=== PATIENT | female | born 1945 | race Caucasian/White ===

== ENCOUNTER 2018-01-18 14:58 | Inpatient (IN) ==
[2018-01-18] MEDS ORDERED: ONDANSETRON 4 MG/2 ML VIAL IV STA (16:07)
[2018-01-18] MEDS ORDERED: SODIUM CHLORIDE 0.9% 1,000 ML IV STA (16:07)
[2018-01-18 17:06] LABS: Basophils % 0.9 % (0.0-0.8); Eosinophils % 0.9 % (0.00-10.9); Hematocrit 46.2 VOL% (35.7-47.0); Hemoglobin 14.9 GM/DL (12.0-16.0); Immature Granulocytes % 0.4 %; Immature Granulocytes Absolute 0.01 #; Lymphocytes # 0.5 10*3/uL (1.4-4.0); Lymphocytes % 23.7 % (21.3-54.2); Mean Corpuscular HGB Conc 32.3 GM/DL (32-36); Mean Corpuscular Hemoglobin 30 PG (27-34); Mean Corpuscular Volume 91.5 FL (87-102); Mean Platelet Volume 13.5 FL (9.6-12.0); Monocytes # 0.2 10*3/uL (0.11-0.8); Monocytes % 10.1 % (1.7-12.7); Neutrophils # 1.5 10*3/uL (1.4-7.4); Platelet Count 107 T/CUMM (130-400); Red Blood Count 5.05 MC/CUMM (3.8-5.5); Red Cell Distribution Width 15.7 % (9.3-17.3); White Blood Count 2.3 T/CUMM (4-12)
[2018-01-18 17:39] LABS: Alanine Aminotransferase 1132 U/L (13-56); Albumin 3.5 G/DL (3.4-5.0); Alkaline Phosphatase 273 U/L (45-117); Amylase 24 U/L (25-115); Blood Urea Nitrogen 12 MG/DL (7-18); Calcium 8.9 MG/DL (8.5-10.1); Glucose 109 MG/DL (74-106); Osmolality,Calculated 273.8 MOS/KG (273-304); Potassium 4.7 MMOL/L (3.5-5.1); Sodium 137 MMOL/L (136-145); Total Protein 7.2 G/DL (6.4-8.3); Troponin I Only < 0.015 NG/ML (0.00-0.045)
[2018-01-18 17:46] LABS: Aspartate Amino Transferase 2045 U/L (0-37)
[2018-01-18 17:50] LABS: Apearance,Urine CLEAR (Clear); Bilirubin,Urine Negative (Negative); Blood, Urine Negative (Negative); Glucose,Urine (UA) Negative (Negative); Ketones,Urine Negative (Negative); Nitrite,Urine Negative (Negative); Protein,Urine Negative; RBC,Urine <1 /HPF (0-4); Urine Color Yellow (Yellow); Urine Specific Gravity 1.008 (1.001-1.035); Urine Urobilinogen < 2.0 EU/DL (0.2-1.0); WBC,Urine <1 /HPF (0-6)
[2018-01-18] MEDS ORDERED: ONDANSETRON 4 MG/2 ML VIAL IV PRN (18:12)
[2018-01-18 18:22] LABS: INR 0.9
[2018-01-18 20:04] LABS: Hepatitis A Ab IgM Quant 0.14 Index; Hepatitis A Ab IgM Result Negative (Negative); Hepatitis B Core IgM Quant 0.19 Index; Hepatitis B Core IgM Result Negative (Negative); Hepatitis B Surface Ag Quant < 0.10 Index; Hepatitis B Surface Ag Result Negative (Negative); Hepatitis C Virus Ab Quant 0.14 Index; Hepatitis C Virus Ab Result Negative (Negative)
[2018-01-18] MEDS: SODIUM CHLORIDE 0.9% 1,000 ML IV SCH (20:41)
[2018-01-18] MEDS: MAGNESIUM OXIDE 400 MG TABLET PO SCH (21:44)
[2018-01-18] MEDS: ENOXAPARIN 40 MG/0.4 ML SYRINGE SUBCUT SCH (21:45)
[2018-01-18] MEDS: ASPIRIN EC 325 MG TABLET PO SCH (21:45)
[2018-01-18] MEDS ORDERED: PANTOPRAZOLE 40 MG VIAL IV SCH (22:00)
[2018-01-19 06:03] LABS: Basophils % 0.9 % (0.0-0.8); Eosinophils # 0.1 10*3/uL (0.0-0.87); Eosinophils % 2.4 % (0.00-10.9); Hematocrit 40.3 VOL% (35.7-47.0); Hemoglobin 13.2 GM/DL (12.0-16.0); Immature Granulocytes % 0.3 %; Immature Granulocytes Absolute 0.01 #; Lymphocytes # 1.2 10*3/uL (1.4-4.0); Lymphocytes % 36.5 % (21.3-54.2); Mean Corpuscular HGB Conc 32.8 GM/DL (32-36); Mean Corpuscular Hemoglobin 30 PG (27-34); Mean Corpuscular Volume 90.6 FL (87-102); Mean Platelet Volume 13.4 FL (9.6-12.0); Monocytes # 0.3 10*3/uL (0.11-0.8); Monocytes % 9.1 % (1.7-12.7); Neutrophils # 1.7 10*3/uL (1.4-7.4); Neutrophils % 50.8 % (38.7-73.9); Platelet Count 123 T/CUMM (130-400); Red Blood Count 4.45 MC/CUMM (3.8-5.5); Red Cell Distribution Width 15.7 % (9.3-17.3); White Blood Count 3.3 T/CUMM (4-12)
[2018-01-19] MEDS: LEVOTHYROXINE 100 MCG TABLET PO SCH (06:19)
[2018-01-19] MEDS: SODIUM CHLORIDE 0.9% 1,000 ML IV SCH ×2 (06:20→20:56)
[2018-01-19 06:37] LABS: Albumin 2.8 G/DL (3.4-5.0); Calcium 7.9 MG/DL (8.5-10.1); Thyroid Stimulating Hormone 1.3 uIU/ml (0.358-3.74); Total Protein 5.6 G/DL (6.4-8.3)
[2018-01-19 15:39] LABS: % Iron Saturation 56.9 % (18-50)
[2018-01-19] MEDS: amLODIPine 10 MG TABLET PO SCH (18:46)
[2018-01-19] MEDS: PANTOPRAZOLE 40 MG TABLET PO SCH (18:46)
[2018-01-19] MEDS: MAGNESIUM OXIDE 400 MG TABLET PO SCH ×2 (18:46→20:52)
[2018-01-19] MEDS: MONTELUKAST 10 MG TABLET PO SCH (18:46)
[2018-01-19] MEDS ORDERED: IBUPROFEN 400 MG TABLET PO PRN (20:43)
[2018-01-19] MEDS: ASPIRIN EC 325 MG TABLET PO SCH (20:52)
[2018-01-19] MEDS: ENOXAPARIN 40 MG/0.4 ML SYRINGE SUBCUT SCH (20:54)
[2018-01-20 05:44] LABS: Basophils % 1.1 % (0.0-0.8); Eosinophils # 0.1 10*3/uL (0.0-0.87); Eosinophils % 3.9 % (0.00-10.9); Hematocrit 39.8 VOL% (35.7-47.0); Immature Granulocytes % 0.3 %; Immature Granulocytes Absolute 0.01 #; Lymphocytes # 1.5 10*3/uL (1.4-4.0); Lymphocytes % 40.7 % (21.3-54.2); Mean Corpuscular HGB Conc 32.7 GM/DL (32-36); Mean Corpuscular Hemoglobin 30 PG (27-34); Mean Corpuscular Volume 91.3 FL (87-102); Mean Platelet Volume 12.9 FL (9.6-12.0); Monocytes # 0.3 10*3/uL (0.11-0.8); NRBC # 0.02 10*3/uL; Neutrophils # 1.6 10*3/uL (1.4-7.4); Platelet Count 100 T/CUMM (130-400); Red Blood Count 4.36 MC/CUMM (3.8-5.5); Red Cell Distribution Width 15.6 % (9.3-17.3); White Blood Count 3.6 T/CUMM (4-12)
[2018-01-20 06:16] LABS: Albumin 2.8 G/DL (3.4-5.0); Bilirubin,Total 0.6 MG/DL (0.2-1.0); Calcium 7.5 MG/DL (8.5-10.1); Potassium 4.2 MMOL/L (3.5-5.1); Total Protein 5.5 G/DL (6.4-8.3)
[2018-01-20 06:17] LABS: Albumin 2.9 G/DL (3.4-5.0); Bilirubin,Direct 0.13 MG/DL (0.0-0.20); Bilirubin,Indirect 0.6 MG/DL (0.0-1.0); Bilirubin,Total 0.7 MG/DL (0.2-1.0); Total Protein 5.3 G/DL (6.4-8.3)
[2018-01-20] MEDS: LEVOTHYROXINE 100 MCG TABLET PO SCH (06:18)
[2018-01-20] MEDS: SODIUM CHLORIDE 0.9% 1,000 ML IV SCH (07:50)
[2018-01-20] MEDS ORDERED: ERYTHROMYCIN BASE 250 MG TABLET PO SCH (11:30)
[2018-01-20] MEDS: PANTOPRAZOLE 40 MG TABLET PO SCH (11:38)
[2018-01-20] MEDS: amLODIPine 10 MG TABLET PO SCH (11:38)
[2018-01-20] MEDS: MAGNESIUM OXIDE 400 MG TABLET PO SCH (11:38)
[2018-01-20] MEDS: MONTELUKAST 10 MG TABLET PO SCH (11:38)
[2018-01-20 14:54] VITALS: BP 135/65
== END 2018-01-20 15:39 | disposition home or self-care (01) | DRG 392 ==
LOC: N.ED 14:58 → N.EDINP 17:56 → N.4E 19:41
PROVIDERS: ADMIT Hospitalist; ATTEND Hospitalist

== ENCOUNTER 2020-05-18 14:19 | Observation (INO) ==
[2020-05-18] MEDS ORDERED: SIMETHICONE CHEW 125 MG TABLET PO PRN (17:01)
[2020-05-18] MEDS ORDERED: MAGNESIUM SULF RIDER 2 GM in PREMIX 1 EACH IV PRN (17:01)
[2020-05-18] MEDS ORDERED: MAGNESIUM SULF RIDER 4 GM in PREMIX 1 EACH IV PRN (17:01)
[2020-05-18] MEDS ORDERED: ZALEPLON 5 MG CAPSULE PO PRN (17:01)
[2020-05-18] MEDS ORDERED: ALUMINUM/MAGNES/SIMETH MAX STR 30 ML UDCUP PO PRN (17:01)
[2020-05-18] MEDS ORDERED: ONDANSETRON 4 MG/2 ML VIAL IV PRN (17:01)
[2020-05-18] MEDS ORDERED: DOCUSATE SODIUM 100 MG CAPSULE PO PRN (17:01)
[2020-05-18] MEDS ORDERED: POTASSIUM CHLORIDE 20 MEQ TABLET PO PRN (17:01)
[2020-05-18] MEDS ORDERED: diphenhydrAMINE CAP 25 MG CAPSULE PO PRN (17:01)
[2020-05-18] MEDS ORDERED: ENOXAPARIN 40 MG/0.4 ML SYRINGE SUBCUT ONE (17:08)
[2020-05-18] MEDS ORDERED: ONDANSETRON ODT 4 MG TABLET PO PRN (17:12)
[2020-05-18] MEDS ORDERED: NITROGLYCERIN SL 0.4 MG TABLET SL PRN (17:12)
[2020-05-18 17:45] LABS: Basophils % 0.8 % (0.0-0.8); Eosinophils # 0.1 10*3/uL (0.0-0.87); Eosinophils % 2.1 % (0.00-10.9); Hematocrit 40.4 VOL% (35.7-47.0); Immature Granulocytes % 0.2 %; Immature Granulocytes Absolute 0.01 #; Lymphocytes # 1.4 10*3/uL (1.4-4.0); Lymphocytes % 28.1 % (21.3-54.2); Mean Corpuscular HGB Conc 32.2 GM/DL (32-36); Mean Corpuscular Volume 94.4 FL (87-102); Mean Platelet Volume 12.2 FL (9.6-12.0); Neutrophils % 60.8 % (38.7-73.9); Platelet Count 157 T/CUMM (130-400); Red Blood Count 4.28 MC/CUMM (3.8-5.5); Red Cell Distribution Width 14.5 % (9.3-17.3); White Blood Count 5.1 T/CUMM (4-12)
[2020-05-18 18:03] LABS: Albumin 3.2 G/DL (3.4-5.0); Bilirubin,Total 0.8 MG/DL (0.2-1.0); Calcium 9.5 MG/DL (8.5-10.1); Osmolality,Calculated 281.1 MOS/KG (273-304); Total Protein 6.9 G/DL (6.4-8.3)
[2020-05-18 18:10] LABS: Hypochromasia 1+; Microcytosis 1+; Platelet Estimate Adequate
[2020-05-18] MEDS: ASPIRIN EC 325 MG TABLET PO SCH (21:30)
[2020-05-18] MEDS: SODIUM CHLORIDE 0.45% 1,000 ML IV SCH (21:30)
[2020-05-18] MEDS: clonazePAM 0.5 MG TABLET PO SCH (21:30)
[2020-05-18] MEDS ORDERED: ACETAMINOPHEN 325 MG TABLET PO PRN (23:00)
[2020-05-19 04:54] LABS: Basophils % 0.9 % (0.0-0.8); Eosinophils # 0.1 10*3/uL (0.0-0.87); Eosinophils % 2.8 % (0.00-10.9); Hematocrit 34.9 VOL% (35.7-47.0); Hemoglobin 11.3 GM/DL (12.0-16.0); Immature Granulocytes % 0.2 %; Immature Granulocytes Absolute 0.01 #; Lymphocytes # 1.6 10*3/uL (1.4-4.0); Lymphocytes % 34.6 % (21.3-54.2); Mean Corpuscular HGB Conc 32.4 GM/DL (32-36); Mean Corpuscular Volume 93.8 FL (87-102); Mean Platelet Volume 12.9 FL (9.6-12.0); Monocytes % 9.1 % (1.7-12.7); Neutrophils % 52.4 % (38.7-73.9); Platelet Count 144 T/CUMM (130-400); Red Blood Count 3.72 MC/CUMM (3.8-5.5); Red Cell Distribution Width 14.3 % (9.3-17.3); White Blood Count 4.6 T/CUMM (4-12)
[2020-05-19 05:07] LABS: Albumin 2.6 G/DL (3.4-5.0); Bilirubin,Total 1.3 MG/DL (0.2-1.0); Osmolality,Calculated 276.4 MOS/KG (273-304)
[2020-05-19 05:55] LABS: Anisocytosis 1+; Platelet Estimate Adequate
[2020-05-19 05:56] LABS: Spherocytes Few
[2020-05-19] MEDS: SODIUM CHLORIDE 0.45% 1,000 ML IV SCH (08:33)
[2020-05-19] MEDS ORDERED: amLODIPine 5 MG TABLET PO SCH (09:00)
[2020-05-19] MEDS ORDERED: LOSARTAN 25 MG TABLET PO SCH (09:00)
[2020-05-19] MEDS: PARoxetine 20 MG TABLET PO SCH (09:56)
[2020-05-19] MEDS: ISOSORBIDE MONONITRATE 60 MG TABLET PO SCH (09:56)
[2020-05-19] MEDS: LEVOTHYROXINE 100 MCG TABLET PO SCH (09:56)
[2020-05-19] MEDS: PANTOPRAZOLE 40 MG TABLET PO SCH (09:59)
[2020-05-19] MEDS: METOPROLOL SUCCINATE XL 25 MG TABLET PO SCH (09:59)
[2020-05-19] MEDS ORDERED: amLODIPine 5 MG TABLET PO STA (11:14)
[2020-05-19] MEDS ORDERED: LOSARTAN 25 MG TABLET PO STA (11:31)
[2020-05-19] MEDS ORDERED: THROMBIN TOPICAL (RECOMBINANT) 5,000 UNIT VIAL TOP ONE (14:58)
[2020-05-19] MEDS ORDERED: LOSARTAN 50 MG TABLET PO SCH (21:00)
[2020-05-19] MEDS: clonazePAM 0.5 MG TABLET PO SCH (21:20)
[2020-05-19] MEDS: LOSARTAN 50 MG TABLET PO SCH (21:21)
[2020-05-19] MEDS: ROSUVASTATIN 20 MG TABLET PO SCH (21:21)
[2020-05-19] MEDS: ASPIRIN EC 325 MG TABLET PO SCH (21:21)
[2020-05-20 05:26] LABS: Basophils % 0.8 % (0.0-0.8); Eosinophils # 0.2 10*3/uL (0.0-0.87); Eosinophils % 2.9 % (0.00-10.9); Hemoglobin 11.5 GM/DL (12.0-16.0); Immature Granulocytes % 0.4 %; Immature Granulocytes Absolute 0.02 #; Lymphocytes # 1.7 10*3/uL (1.4-4.0); Lymphocytes % 32.2 % (21.3-54.2); Mean Corpuscular HGB Conc 32.9 GM/DL (32-36); Mean Corpuscular Volume 92.3 FL (87-102); Monocytes % 9.2 % (1.7-12.7); Neutrophils % 54.5 % (38.7-73.9); Platelet Count 148 T/CUMM (130-400); Red Blood Count 3.79 MC/CUMM (3.8-5.5); Red Cell Distribution Width 14.2 % (9.3-17.3); White Blood Count 5.2 T/CUMM (4-12)
[2020-05-20 05:44] LABS: Calcium 9.2 MG/DL (8.5-10.1); Osmolality,Calculated 278.4 MOS/KG (273-304)
[2020-05-20] MEDS: LEVOTHYROXINE 100 MCG TABLET PO SCH (06:17)
[2020-05-20] MEDS ORDERED: amLODIPine 10 MG TABLET PO SCH (09:00)
[2020-05-20] MEDS: METOPROLOL SUCCINATE XL 25 MG TABLET PO SCH (09:04)
[2020-05-20] MEDS: PANTOPRAZOLE 40 MG TABLET PO SCH (09:04)
[2020-05-20] MEDS: PARoxetine 20 MG TABLET PO SCH (09:04)
[2020-05-20] MEDS: ISOSORBIDE MONONITRATE 60 MG TABLET PO SCH (09:04)
[2020-05-20] MEDS: LOSARTAN 50 MG TABLET PO SCH ×2 (09:04→21:09)
[2020-05-20] MEDS ORDERED: APIXABAN 5 MG TABLET PO SCH (14:27)
[2020-05-20] MEDS ORDERED: amLODIPine 5 MG TABLET PO SCH (21:00)
[2020-05-20] MEDS: APIXABAN 5 MG TABLET PO SCH (21:08)
[2020-05-20] MEDS: ROSUVASTATIN 20 MG TABLET PO SCH (21:09)
[2020-05-20] MEDS: ASPIRIN EC 325 MG TABLET PO SCH (21:09)
[2020-05-20] MEDS: clonazePAM 0.5 MG TABLET PO SCH (21:10)
[2020-05-21 05:47] LABS: Basophils % 0.5 % (0.0-0.8); Eosinophils # 0.2 10*3/uL (0.0-0.87); Eosinophils % 2.9 % (0.00-10.9); Hematocrit 37.2 VOL% (35.7-47.0); Immature Granulocytes % 0.2 %; Immature Granulocytes Absolute 0.01 #; Lymphocytes # 1.7 10*3/uL (1.4-4.0); Lymphocytes % 29.4 % (21.3-54.2); Mean Corpuscular HGB Conc 32.3 GM/DL (32-36); Mean Corpuscular Volume 93.9 FL (87-102); Mean Platelet Volume 12.3 FL (9.6-12.0); Monocytes % 9.6 % (1.7-12.7); Neutrophils % 57.4 % (38.7-73.9); Platelet Count 148 T/CUMM (130-400); Red Blood Count 3.96 MC/CUMM (3.8-5.5); Red Cell Distribution Width 14.1 % (9.3-17.3); White Blood Count 5.9 T/CUMM (4-12)
[2020-05-21] MEDS: LEVOTHYROXINE 100 MCG TABLET PO SCH (06:02)
[2020-05-21 07:27] LABS: Calcium 9.3 MG/DL (8.5-10.1); Osmolality,Calculated 282.3 MOS/KG (273-304)
[2020-05-21] MEDS ORDERED: ASPIRIN EC 81 MG TABLET PO SCH (09:00)
[2020-05-21] MEDS: APIXABAN 5 MG TABLET PO SCH (11:08)
[2020-05-21] MEDS: PANTOPRAZOLE 40 MG TABLET PO SCH (11:08)
[2020-05-21] MEDS: METOPROLOL SUCCINATE XL 25 MG TABLET PO SCH (11:08)
[2020-05-21] MEDS: PARoxetine 20 MG TABLET PO SCH (11:08)
[2020-05-21] MEDS: ISOSORBIDE MONONITRATE 60 MG TABLET PO SCH (11:08)
[2020-05-21] MEDS: LOSARTAN 50 MG TABLET PO SCH (11:08)
[2020-05-21 12:32] VITALS: BP 138/68
[2020-05-28] MEDS ORDERED: APIXABAN 5 MG TABLET PO SCH (09:00)
== END 2020-05-21 14:50 | disposition home or self-care (01) ==
LOC: N.EDINP 14:19 → N.ED 14:19 → N.2W 05-19 12:26 → N.TELES 05-19 14:47
PROVIDERS: ADMIT Internal Medicine Cardiovascular Disease; ATTEND Internal Medicine Cardiovascular Disease

== ENCOUNTER 2020-10-22 15:34 | Inpatient (IN) ==
[2020-10-22 18:22] LABS: Basophils % 0.7 % (0.0-0.8); Eosinophils # 0.1 10*3/uL (0.0-0.87); Eosinophils % 2.5 % (0.00-10.9); Hematocrit 42.8 VOL% (35.7-47.0); Hemoglobin 13.5 GM/DL (12.0-16.0); Immature Granulocytes % 0.2 %; Immature Granulocytes Absolute 0.01 #; Lymphocytes # 1.8 10*3/uL (1.4-4.0); Lymphocytes % 31.1 % (21.3-54.2); Mean Corpuscular HGB Conc 31.5 GM/DL (32-36); Mean Corpuscular Volume 93.2 FL (87-102); Monocytes % 9.5 % (1.7-12.7); Platelet Count 105 T/CUMM (130-400); Red Blood Count 4.59 MC/CUMM (3.8-5.5); Red Cell Distribution Width 15.5 % (9.3-17.3); White Blood Count 5.7 T/CUMM (4-12)
[2020-10-22 18:31] LABS: INR 2.3; PT Patient Result 23.3 SECS (9.8-11.9); Partial Thromboplastin Time 36.7 SECS (23.9-33.8)
[2020-10-22 18:43] LABS: Calcium 8.6 MG/DL (8.5-10.1); Osmolality,Calculated 283.3 MOS/KG (273-304); Potassium 4.6 MMOL/L (3.5-5.1)
[2020-10-22] MEDS ORDERED: CLINDAMYCIN INJ 300 MG in SODIUM CHLORIDE 0.9% 100 ML IV STA (19:37)
[2020-10-22] MEDS ORDERED: cefTRIAXone 1,000 MG in SODIUM CHLORIDE 0.9% 100 ML IV STA (19:37)
[2020-10-22] MEDS ORDERED: CLINDAMYCIN INJ 50 ML IV STA (19:43)
[2020-10-22] MEDS ORDERED: hydrALAZINE 20 MG/1 ML VIAL IV STA (21:47)
[2020-10-22] MEDS: AMPICILLIN/SULBACTAM 3,000 MG in SODIUM CHLORIDE 0.9% 100 ML IV SCH (21:55)
[2020-10-22] MEDS ORDERED: DEXTROSE 50% 25 GM/50 ML VIAL IV PRN (22:17)
[2020-10-22] MEDS ORDERED: GLUCAGON 1 MG VIAL IM PRN (22:17)
[2020-10-22] MEDS ORDERED: hydrALAZINE 20 MG/1 ML VIAL IV PRN (22:17)
[2020-10-22] MEDS: SODIUM CHLORIDE 0.9% 1,000 ML IV SCH (23:31)
[2020-10-22] MEDS: ONDANSETRON 4 MG/2 ML VIAL IV PRN (23:41)
[2020-10-23] MEDS: AMPICILLIN/SULBACTAM 3,000 MG in SODIUM CHLORIDE 0.9% 100 ML IV SCH ×4 (03:17→21:26)
[2020-10-23 06:34] LABS: Basophils % 0.6 % (0.0-0.8); Eosinophils # 0.2 10*3/uL (0.0-0.87); Hematocrit 40.1 VOL% (35.7-47.0); Hemoglobin 13.2 GM/DL (12.0-16.0); Lymphocytes # 1.2 10*3/uL (1.4-4.0); Mean Corpuscular HGB Conc 32.9 GM/DL (32-36); Mean Corpuscular Volume 91.6 FL (87-102); Monocytes % 10.3 % (1.7-12.7); Neutrophils % 63.1 % (38.7-73.9); Red Blood Count 4.38 MC/CUMM (3.8-5.5); Red Cell Distribution Width 15.4 % (9.3-17.3)
[2020-10-23 06:36] LABS: INR 1.1; PT Patient Result 11.6 SECS (9.8-11.9)
[2020-10-23 06:43] LABS: Platelet Count 83 T/CUMM (130-400)
[2020-10-23 07:23] LABS: Calcium 8.5 MG/DL (8.5-10.1); Osmolality,Calculated 287.7 MOS/KG (273-304); Potassium 3.6 MMOL/L (3.5-5.1); Thyroid Stimulating Hormone 0.029 uIU/ml (0.358-3.74)
[2020-10-23 08:22] LABS: Anisocytosis 1+; Macrocytosis Slight; Platelet Estimate Decreased; Poikilocytosis Slight
[2020-10-23] MEDS: PANTOPRAZOLE 40 MG VIAL IV SCH ×2 (08:38→21:25)
[2020-10-23] MEDS ORDERED: ACETAMINOPHEN 325 MG TABLET PO ONE (13:09)
[2020-10-23] MEDS: ONDANSETRON 4 MG/2 ML VIAL IV PRN (17:13)
[2020-10-23] MEDS: clonazePAM 0.5 MG TABLET PO SCH (21:25)
[2020-10-23] MEDS: ROSUVASTATIN 20 MG TABLET PO SCH (21:26)
[2020-10-23] MEDS: SODIUM CHLORIDE 0.9% 1,000 ML IV SCH (21:30)
[2020-10-24] MEDS: AMPICILLIN/SULBACTAM 3,000 MG in SODIUM CHLORIDE 0.9% 100 ML IV SCH ×4 (03:02→20:51)
[2020-10-24] MEDS ORDERED: LEVOTHYROXINE 100 MCG TABLET PO SCH (06:00)
[2020-10-24 07:17] LABS: Basophils % 0.8 % (0.0-0.8); Eosinophils # 0.1 10*3/uL (0.0-0.87); Eosinophils % 2.2 % (0.00-10.9); Hematocrit 40.4 VOL% (35.7-47.0); Hemoglobin 12.5 GM/DL (12.0-16.0); Immature Granulocytes % 0.4 %; Immature Granulocytes Absolute 0.02 #; Lymphocytes # 0.9 10*3/uL (1.4-4.0); Lymphocytes % 17.8 % (21.3-54.2); Mean Corpuscular HGB Conc 30.9 GM/DL (32-36); Mean Corpuscular Volume 95.3 FL (87-102); Monocytes % 11.5 % (1.7-12.7); Neutrophils % 67.3 % (38.7-73.9); Platelet Count 90 T/CUMM (130-400); Red Blood Count 4.24 MC/CUMM (3.8-5.5); Red Cell Distribution Width 15.8 % (9.3-17.3); White Blood Count 5.1 T/CUMM (4-12)
[2020-10-24 07:40] LABS: Bilirubin,Total 0.7 MG/DL (0.2-1.0); Calcium 8.3 MG/DL (8.5-10.1); Free T4 (Free Thyroxine) 1.35 NG/DL (0.76-1.46); Potassium 3.8 MMOL/L (3.5-5.1); Total Protein 4.8 G/DL (6.4-8.3)
[2020-10-24 07:45] LABS: INR 1.2; PT Patient Result 12.3 SECS (9.8-11.9)
[2020-10-24 07:55] LABS: Platelet Estimate Decreased
[2020-10-24 07:56] LABS: Anisocytosis 2+; Macrocytosis 1+
[2020-10-24] MEDS: METOPROLOL SUCCINATE XL 25 MG TABLET PO SCH (08:34)
[2020-10-24] MEDS: PARoxetine 20 MG TABLET PO SCH (08:34)
[2020-10-24] MEDS: amLODIPine 2.5 MG TABLET PO SCH (08:34)
[2020-10-24] MEDS: PANTOPRAZOLE 40 MG VIAL IV SCH (08:34)
[2020-10-24] MEDS: LOSARTAN 25 MG TABLET PO SCH (12:42)
[2020-10-24] MEDS: clonazePAM 0.5 MG TABLET PO SCH (20:51)
[2020-10-24] MEDS: OXYBUTYNIN XL 15 MG TABLET PO SCH (20:51)
[2020-10-24] MEDS: ROSUVASTATIN 20 MG TABLET PO SCH (20:51)
[2020-10-24] MEDS: ACETAMINOPHEN 325 MG TABLET PO PRN (22:52)
[2020-10-25] MEDS: AMPICILLIN/SULBACTAM 3,000 MG in SODIUM CHLORIDE 0.9% 100 ML IV SCH ×4 (03:19→21:32)
[2020-10-25 04:39] LABS: Basophils % 0.5 % (0.0-0.8); Eosinophils # 0.2 10*3/uL (0.0-0.87); Eosinophils % 2.7 % (0.00-10.9); Hematocrit 37.8 VOL% (35.7-47.0); Hemoglobin 12.1 GM/DL (12.0-16.0); Immature Granulocytes % 0.4 %; Immature Granulocytes Absolute 0.02 #; Lymphocytes # 1.7 10*3/uL (1.4-4.0); Lymphocytes % 30.1 % (21.3-54.2); Mean Corpuscular Volume 92.4 FL (87-102); Monocytes % 11.4 % (1.7-12.7); Neutrophils % 54.9 % (38.7-73.9); Platelet Count 76 T/CUMM (130-400); Red Blood Count 4.09 MC/CUMM (3.8-5.5); Red Cell Distribution Width 15.5 % (9.3-17.3); White Blood Count 5.5 T/CUMM (4-12)
[2020-10-25 05:01] LABS: Hypochromasia Slight; Microcytosis 1+
[2020-10-25 05:02] LABS: Ovalocytes Slight; Platelet Estimate Decreased
[2020-10-25 05:05] LABS: Calcium 8.3 MG/DL (8.5-10.1); Osmolality,Calculated 284.7 MOS/KG (273-304); Potassium 3.4 MMOL/L (3.5-5.1)
[2020-10-25] MEDS: LEVOTHYROXINE 75 MCG TABLET PO SCH (07:08)
[2020-10-25] MEDS: LACTATED RINGERS 1,000 ML IV SCH (08:54)
[2020-10-25] MEDS ORDERED: ETOMIDATE 20 MG/10 ML VIAL IV ONE (09:18)
[2020-10-25] MEDS ORDERED: PHENYLEPHRINE 1 MG/10 ML SYRINGE IV ONE (09:18)
[2020-10-25] MEDS ORDERED: propofoL 200 MG/20 ML VIAL IV ONE (09:18)
[2020-10-25] MEDS ORDERED: LIDOCAINE 2% 5 ML VIAL ONE (09:18)
[2020-10-25] MEDS ORDERED: LABETALOL 20 MG/4 ML SYRINGE IV ONE (09:36)
[2020-10-25] MEDS: PANTOPRAZOLE 40 MG TABLET PO SCH (10:50)
[2020-10-25] MEDS: amLODIPine 2.5 MG TABLET PO SCH (10:50)
[2020-10-25] MEDS: METOPROLOL SUCCINATE XL 25 MG TABLET PO SCH (10:50)
[2020-10-25] MEDS: LOSARTAN 25 MG TABLET PO SCH (10:50)
[2020-10-25] MEDS: PARoxetine 20 MG TABLET PO SCH (10:51)
[2020-10-25] MEDS: SODIUM CHLOR 0.9% KCL 20 MEQ 20 MEQ/1,000 ML BAG IV SCH ×2 (10:53→23:57)
[2020-10-25] MEDS: ACETAMINOPHEN 325 MG TABLET PO PRN (19:18)
[2020-10-25] MEDS: clonazePAM 0.5 MG TABLET PO SCH (21:33)
[2020-10-25] MEDS: OXYBUTYNIN XL 15 MG TABLET PO SCH (21:33)
[2020-10-25] MEDS: ROSUVASTATIN 20 MG TABLET PO SCH (21:33)
[2020-10-26] MEDS: AMPICILLIN/SULBACTAM 3,000 MG in SODIUM CHLORIDE 0.9% 100 ML IV SCH ×2 (03:02→09:02)
[2020-10-26] MEDS: LEVOTHYROXINE 75 MCG TABLET PO SCH (05:25)
[2020-10-26] MEDS: amLODIPine 2.5 MG TABLET PO SCH (09:02)
[2020-10-26] MEDS: PANTOPRAZOLE 40 MG TABLET PO SCH (09:02)
[2020-10-26] MEDS: LOSARTAN 25 MG TABLET PO SCH (09:02)
[2020-10-26] MEDS: PARoxetine 20 MG TABLET PO SCH (09:02)
[2020-10-26] MEDS: METOPROLOL SUCCINATE XL 25 MG TABLET PO SCH (09:02)
[2020-10-26] MEDS: SODIUM CHLOR 0.9% KCL 20 MEQ 20 MEQ/1,000 ML BAG IV SCH (09:17)
[2020-10-26] MEDS: LACTATED RINGERS 1,000 ML IV SCH (09:17)
[2020-10-26 12:07] VITALS: BP 170/61
== END 2020-10-26 14:20 | disposition home or self-care (01) | DRG 391 ==
LOC: N.ED 15:34 → N.EDINP 15:34 → N.3E 21:59 → SUATTDRO 10-24 14:01
PROVIDERS: ADMIT Internal Medicine; ATTEND Internal Medicine

== ENCOUNTER 2020-10-27 19:46 | Inpatient (IN) ==
[2020-10-27] MEDS ORDERED: ALBUTEROL/IPRATROPIUM 3 ML NEB RESP TX STA (20:20)
[2020-10-27] MEDS ORDERED: ONDANSETRON 4 MG/2 ML VIAL IV STA (20:20)
[2020-10-27] MEDS ORDERED: methylPREDNISolone SOD SUC 125 MG/2 ML VIAL IV STA (20:20)
[2020-10-27 20:46] LABS: Basophils # 0.1 10*3/uL (0.0-0.2); Eosinophils # 0.2 10*3/uL (0.0-0.87); Hemoglobin 12.5 GM/DL (12.0-16.0); Immature Granulocytes % 0.4 %; Immature Granulocytes Absolute 0.02 #; Lymphocytes # 1.9 10*3/uL (1.4-4.0); Lymphocytes % 36.3 % (21.3-54.2); Mean Corpuscular HGB Conc 31.3 GM/DL (32-36); Mean Corpuscular Volume 94.1 FL (87-102); Neutrophils % 49.3 % (38.7-73.9); Platelet Count 111 T/CUMM (130-400); Red Blood Count 4.25 MC/CUMM (3.8-5.5); Red Cell Distribution Width 15.6 % (9.3-17.3); White Blood Count 5.2 T/CUMM (4-12)
[2020-10-27 20:58] LABS: INR 1.3; PT Patient Result 13.7 SECS (9.8-11.9)
[2020-10-27 21:11] LABS: Albumin 2.2 G/DL (3.4-5.0); Bilirubin,Total 0.5 MG/DL (0.2-1.0); Calcium 8.5 MG/DL (8.5-10.1); Osmolality,Calculated 287.7 MOS/KG (273-304); Potassium 3.8 MMOL/L (3.5-5.1); Total Protein 5.7 G/DL (6.4-8.9)
[2020-10-27] MEDS ORDERED: PIPERACILLIN/TAZOBACTAM 3,375 MG in SODIUM CHLORIDE 0.9% 100 ML IV STA (21:26)
[2020-10-27] MEDS ORDERED: NITROGLYCERIN SL 0.4 MG TABLET SL PRN (21:46)
[2020-10-27] MEDS ORDERED: NICOTINE 21 MG/24 HR PATCH TRANSDERM PRN (21:47)
[2020-10-27] MEDS ORDERED: hydrALAZINE 20 MG/1 ML VIAL IV PRN (21:47)
[2020-10-27] MEDS ORDERED: ALUMINUM/MAGNES/SIMETH MAX STR 30 ML UDCUP PO PRN (21:47)
[2020-10-27] MEDS ORDERED: PROMETHAZINE 25 MG TABLET PO PRN (21:47)
[2020-10-27] MEDS ORDERED: guaiFENesin/DM ER 600-30 MG TABLET PO PRN (21:47)
[2020-10-27] MEDS ORDERED: BISACODYL 5 MG TABLET PO PRN (21:47)
[2020-10-27] MEDS ORDERED: ACETAMINOPHEN 325 MG TABLET PO PRN (21:47)
[2020-10-27] MEDS ORDERED: diphenhydrAMINE CAP 25 MG CAPSULE PO PRN (21:47)
[2020-10-27] MEDS ORDERED: DEXTROSE 50% 25 GM/50 ML VIAL IV PRN (21:47)
[2020-10-27] MEDS ORDERED: GLUCAGON 1 MG VIAL IM PRN (21:47)
[2020-10-27] MEDS ORDERED: SODIUM CHLORIDE 0.9% 1,000 ML IV SCH (22:00)
[2020-10-28] MEDS: ALBUTEROL/IPRATROPIUM 3 ML NEB RESP TX SCH ×7 (00:55→22:58)
[2020-10-28] MEDS: clonazePAM 0.5 MG TABLET PO SCH ×2 (01:23→20:39)
[2020-10-28] MEDS: VANCOMYCIN INJ 1,000 MG in SODIUM CHLORIDE 0.9% 250 ML IV SCH ×2 (01:23→13:00)
[2020-10-28 05:03] LABS: Basophils % 0.5 % (0.0-0.8); Eosinophils % 0.3 % (0.00-10.9); Hematocrit 41.5 VOL% (35.7-47.0); Immature Granulocytes % 0.8 %; Immature Granulocytes Absolute 0.03 #; Lymphocytes # 0.5 10*3/uL (1.4-4.0); Lymphocytes % 13.6 % (21.3-54.2); Mean Corpuscular HGB Conc 31.3 GM/DL (32-36); Monocytes % 1.3 % (1.7-12.7); Neutrophils % 83.5 % (38.7-73.9); Red Blood Count 4.37 MC/CUMM (3.8-5.5); Red Cell Distribution Width 15.6 % (9.3-17.3); White Blood Count 3.8 T/CUMM (4-12)
[2020-10-28 05:06] LABS: Platelet Count 98 T/CUMM (130-400)
[2020-10-28] MEDS: PIPERACILLIN/TAZOBACTAM 3,375 MG in SODIUM CHLORIDE 0.9% 100 ML IV SCH ×3 (05:06→21:05)
[2020-10-28 05:26] LABS: Calcium 8.6 MG/DL (8.5-10.1); Osmolality,Calculated 281.4 MOS/KG (273-304); Potassium 3.6 MMOL/L (3.5-5.1)
[2020-10-28 05:47] LABS: Bilirubin,Urine Negative (Negative); Blood, Urine Negative (Negative); Calcium Oxalate Crystals,Urine Occasional /HPF (Few); Glucose,Urine (UA) Negative (Negative); Hyaline Casts,Urine 3 /LPF (0-3); Ketones,Urine Negative (Negative); Mucus,Urine Occasional /LPF (Occasional); Nitrite,Urine Negative (Negative); Protein,Urine Negative; RBC,Urine 7 /HPF (0-4); Squamous Epithelial Cell,Urine Occasional /HPF (0-10); Urine Appearance CLEAR (Clear); Urine Color Yellow (Yellow); Urine Specific Gravity 1.016 (1.001-1.035); Urine Urobilinogen < 2.0 EU/DL (0.2-1.0); WBC,Urine 2 /HPF (0-6)
[2020-10-28] MEDS: LEVOTHYROXINE 100 MCG TABLET PO SCH (05:51)
[2020-10-28 06:35] LABS: Hypochromasia 1+; Microcytosis 1+
[2020-10-28 06:36] LABS: Ovalocytes Few; Platelet Estimate Decreased
[2020-10-28] MEDS: PANTOPRAZOLE 40 MG TABLET PO SCH ×2 (08:22→20:40)
[2020-10-28] MEDS: APIXABAN 5 MG TABLET PO SCH ×2 (08:22→20:40)
[2020-10-28] MEDS: METOPROLOL SUCCINATE XL 25 MG TABLET PO SCH (08:22)
[2020-10-28] MEDS: PARoxetine 20 MG TABLET PO SCH (08:22)
[2020-10-28] MEDS: amLODIPine 2.5 MG TABLET PO SCH (08:23)
[2020-10-28] MEDS: LOSARTAN 25 MG TABLET PO SCH (08:23)
[2020-10-28] MEDS: FUROSEMIDE 40 MG/4 ML VIAL IV SCH ×2 (09:34→15:09)
[2020-10-28] MEDS: OXYBUTYNIN XL 15 MG TABLET PO SCH (20:39)
[2020-10-28] MEDS: ROSUVASTATIN 20 MG TABLET PO SCH (20:40)
[2020-10-29] MEDS: VANCOMYCIN INJ 1,000 MG in SODIUM CHLORIDE 0.9% 250 ML IV SCH ×2 (01:01→13:04)
[2020-10-29] MEDS: ALBUTEROL/IPRATROPIUM 3 ML NEB RESP TX SCH ×4 (03:01→19:02)
[2020-10-29 06:00] LABS: Basophils % 0.3 % (0.0-0.8); Eosinophils % 0.1 % (0.00-10.9); Hematocrit 34.9 VOL% (35.7-47.0); Hemoglobin 11.4 GM/DL (12.0-16.0); Immature Granulocytes % 0.4 %; Immature Granulocytes Absolute 0.03 #; Lymphocytes # 1.6 10*3/uL (1.4-4.0); Lymphocytes % 22.7 % (21.3-54.2); Mean Corpuscular HGB Conc 32.7 GM/DL (32-36); Mean Corpuscular Volume 91.8 FL (87-102); Mean Platelet Volume 13.7 FL (9.6-12.0); Monocytes % 10.1 % (1.7-12.7); Neutrophils % 66.4 % (38.7-73.9); Platelet Count 111 T/CUMM (130-400); Red Cell Distribution Width 15.7 % (9.3-17.3); White Blood Count 6.9 T/CUMM (4-12)
[2020-10-29 06:10] LABS: Calcium 8.5 MG/DL (8.5-10.1); Potassium 3.5 MMOL/L (3.5-5.1)
[2020-10-29] MEDS: PIPERACILLIN/TAZOBACTAM 3,375 MG in SODIUM CHLORIDE 0.9% 100 ML IV SCH ×3 (06:54→21:17)
[2020-10-29] MEDS: LEVOTHYROXINE 100 MCG TABLET PO SCH (06:54)
[2020-10-29] MEDS: amLODIPine 2.5 MG TABLET PO SCH (08:09)
[2020-10-29] MEDS: METOPROLOL SUCCINATE XL 25 MG TABLET PO SCH (08:09)
[2020-10-29] MEDS: PARoxetine 20 MG TABLET PO SCH (08:09)
[2020-10-29] MEDS: PANTOPRAZOLE 40 MG TABLET PO SCH ×2 (08:09→21:16)
[2020-10-29] MEDS: LOSARTAN 25 MG TABLET PO SCH (08:10)
[2020-10-29] MEDS: FUROSEMIDE 40 MG/4 ML VIAL IV SCH ×2 (08:10→15:15)
[2020-10-29] MEDS: APIXABAN 5 MG TABLET PO SCH ×2 (08:10→21:16)
[2020-10-29] MEDS ORDERED: ALBUTEROL/IPRATROPIUM 3 ML NEB RESP TX PRN (10:27)
[2020-10-29] MEDS: ONDANSETRON 4 MG/2 ML VIAL IV PRN (13:00)
[2020-10-29] MEDS: clonazePAM 0.5 MG TABLET PO SCH (21:16)
[2020-10-29] MEDS: ROSUVASTATIN 20 MG TABLET PO SCH (21:16)
[2020-10-29] MEDS: OXYBUTYNIN XL 15 MG TABLET PO SCH (21:16)
[2020-10-30] MEDS: ALBUTEROL/IPRATROPIUM 3 ML NEB RESP TX SCH ×4 (01:04→19:04)
[2020-10-30] MEDS: VANCOMYCIN INJ 1,000 MG in SODIUM CHLORIDE 0.9% 250 ML IV SCH ×2 (01:31→12:17)
[2020-10-30 05:57] LABS: Basophils % 0.5 % (0.0-0.8); Eosinophils # 0.3 10*3/uL (0.0-0.87); Eosinophils % 4.6 % (0.00-10.9); Hemoglobin 11.6 GM/DL (12.0-16.0); Immature Granulocytes % 0.2 %; Immature Granulocytes Absolute 0.01 #; Mean Corpuscular HGB Conc 31.4 GM/DL (32-36); Mean Corpuscular Volume 93.7 FL (87-102); Mean Platelet Volume 13.2 FL (9.6-12.0); Monocytes % 8.5 % (1.7-12.7); Neutrophils % 54.2 % (38.7-73.9); Platelet Count 107 T/CUMM (130-400); Red Blood Count 3.95 MC/CUMM (3.8-5.5); Red Cell Distribution Width 16.2 % (9.3-17.3); White Blood Count 6.1 T/CUMM (4-12)
[2020-10-30] MEDS: PIPERACILLIN/TAZOBACTAM 3,375 MG in SODIUM CHLORIDE 0.9% 100 ML IV SCH ×3 (06:20→20:09)
[2020-10-30] MEDS: LEVOTHYROXINE 100 MCG TABLET PO SCH (06:20)
[2020-10-30 06:23] LABS: Calcium 8.1 MG/DL (8.5-10.1); Osmolality,Calculated 285.7 MOS/KG (273-304); Potassium 3.6 MMOL/L (3.5-5.1)
[2020-10-30 06:29] LABS: Hypochromasia Slight; Microcytosis Slight; Platelet Estimate Decreased
[2020-10-30] MEDS: FUROSEMIDE 40 MG/4 ML VIAL IV SCH ×2 (08:28→15:47)
[2020-10-30] MEDS: APIXABAN 5 MG TABLET PO SCH ×2 (08:29→20:09)
[2020-10-30] MEDS: PARoxetine 20 MG TABLET PO SCH (08:29)
[2020-10-30] MEDS: PANTOPRAZOLE 40 MG TABLET PO SCH ×2 (08:29→20:08)
[2020-10-30] MEDS: amLODIPine 2.5 MG TABLET PO SCH (08:29)
[2020-10-30] MEDS: METOPROLOL SUCCINATE XL 25 MG TABLET PO SCH (08:29)
[2020-10-30] MEDS: LOSARTAN 25 MG TABLET PO SCH (08:30)
[2020-10-30] MEDS: ONDANSETRON ODT 4 MG TABLET PO PRN (10:42)
[2020-10-30] MEDS: ROSUVASTATIN 20 MG TABLET PO SCH (20:08)
[2020-10-30] MEDS: clonazePAM 0.5 MG TABLET PO SCH (20:09)
[2020-10-30] MEDS: OXYBUTYNIN XL 15 MG TABLET PO SCH (20:09)
[2020-10-31] MEDS: VANCOMYCIN INJ 1,000 MG in SODIUM CHLORIDE 0.9% 250 ML IV SCH (00:15)
[2020-10-31] MEDS: ALBUTEROL/IPRATROPIUM 3 ML NEB RESP TX SCH ×4 (00:20→19:07)
[2020-10-31 06:07] LABS: Calcium 8.4 MG/DL (8.5-10.1); Potassium 3.6 MMOL/L (3.5-5.1)
[2020-10-31] MEDS: LEVOTHYROXINE 100 MCG TABLET PO SCH (06:10)
[2020-10-31] MEDS: PIPERACILLIN/TAZOBACTAM 3,375 MG in SODIUM CHLORIDE 0.9% 100 ML IV SCH (06:10)
[2020-10-31] MEDS: FUROSEMIDE 40 MG/4 ML VIAL IV SCH ×2 (08:50→15:59)
[2020-10-31] MEDS: METOPROLOL SUCCINATE XL 25 MG TABLET PO SCH (08:50)
[2020-10-31] MEDS: APIXABAN 5 MG TABLET PO SCH ×2 (08:50→21:15)
[2020-10-31] MEDS: PANTOPRAZOLE 40 MG TABLET PO SCH ×2 (08:50→21:15)
[2020-10-31] MEDS: PARoxetine 20 MG TABLET PO SCH (08:50)
[2020-10-31] MEDS: amLODIPine 2.5 MG TABLET PO SCH (08:50)
[2020-10-31] MEDS: LOSARTAN 25 MG TABLET PO SCH (08:50)
[2020-10-31] MEDS: ONDANSETRON 4 MG/2 ML VIAL IV PRN (18:52)
[2020-10-31] MEDS: ROSUVASTATIN 20 MG TABLET PO SCH (21:15)
[2020-10-31] MEDS: OXYBUTYNIN XL 15 MG TABLET PO SCH (21:15)
[2020-10-31] MEDS: clonazePAM 0.5 MG TABLET PO SCH (21:15)
[2020-11-01] MEDS: ALBUTEROL/IPRATROPIUM 3 ML NEB RESP TX SCH ×4 (01:34→19:25)
[2020-11-01 05:33] LABS: Calcium 8.9 MG/DL (8.5-10.1); Osmolality,Calculated 280.1 MOS/KG (273-304); Potassium 3.9 MMOL/L (3.5-5.1)
[2020-11-01] MEDS: LEVOTHYROXINE 100 MCG TABLET PO SCH (05:55)
[2020-11-01] MEDS: PANTOPRAZOLE 40 MG TABLET PO SCH ×2 (09:00→21:59)
[2020-11-01] MEDS: APIXABAN 5 MG TABLET PO SCH ×2 (09:01→21:59)
[2020-11-01] MEDS: METOPROLOL SUCCINATE XL 25 MG TABLET PO SCH (09:01)
[2020-11-01] MEDS: amLODIPine 2.5 MG TABLET PO SCH (09:01)
[2020-11-01] MEDS: PARoxetine 20 MG TABLET PO SCH (09:01)
[2020-11-01] MEDS: LOSARTAN 25 MG TABLET PO SCH (09:01)
[2020-11-01] MEDS: FUROSEMIDE 40 MG/4 ML VIAL IV SCH ×2 (09:02→16:04)
[2020-11-01] MEDS: OXYBUTYNIN XL 15 MG TABLET PO SCH (21:59)
[2020-11-01] MEDS: ZALEPLON 5 MG CAPSULE PO PRN (21:59)
[2020-11-01] MEDS: ROSUVASTATIN 20 MG TABLET PO SCH (21:59)
[2020-11-01] MEDS: clonazePAM 0.5 MG TABLET PO SCH (22:07)
[2020-11-02] MEDS: ALBUTEROL/IPRATROPIUM 3 ML NEB RESP TX SCH ×4 (00:27→20:06)
[2020-11-02 06:03] LABS: Calcium 8.5 MG/DL (8.5-10.1); Osmolality,Calculated 278.3 MOS/KG (273-304); Potassium 3.1 MMOL/L (3.5-5.1)
[2020-11-02] MEDS: LEVOTHYROXINE 100 MCG TABLET PO SCH (06:08)
[2020-11-02] MEDS: FUROSEMIDE 40 MG/4 ML VIAL IV SCH (08:47)
[2020-11-02] MEDS: PANTOPRAZOLE 40 MG TABLET PO SCH ×2 (11:00→22:00)
[2020-11-02] MEDS: PARoxetine 20 MG TABLET PO SCH (11:00)
[2020-11-02] MEDS ORDERED: POTASSIUM CHLORIDE 20 MEQ/15 ML UDCUP PO ONE (11:00)
[2020-11-02] MEDS: amLODIPine 2.5 MG TABLET PO SCH (11:00)
[2020-11-02] MEDS: APIXABAN 5 MG TABLET PO SCH ×2 (11:00→22:00)
[2020-11-02] MEDS: LOSARTAN 25 MG TABLET PO SCH (11:00)
[2020-11-02] MEDS: METOPROLOL SUCCINATE XL 25 MG TABLET PO SCH (11:00)
[2020-11-02] MEDS: ONDANSETRON ODT 4 MG TABLET PO PRN (14:28)
[2020-11-02] MEDS: ROSUVASTATIN 20 MG TABLET PO SCH (22:00)
[2020-11-02] MEDS: OXYBUTYNIN XL 15 MG TABLET PO SCH (22:00)
[2020-11-02] MEDS: clonazePAM 0.5 MG TABLET PO SCH (22:01)
[2020-11-02] MEDS: ZALEPLON 5 MG CAPSULE PO PRN (22:04)
[2020-11-03] MEDS: ALBUTEROL/IPRATROPIUM 3 ML NEB RESP TX SCH ×4 (00:50→19:00)
[2020-11-03 07:05] LABS: Calcium 8.9 MG/DL (8.5-10.1)
[2020-11-03 07:12] LABS: Potassium 4.1 MMOL/L (3.5-5.1)
[2020-11-03] MEDS: LEVOTHYROXINE 100 MCG TABLET PO SCH (07:39)
[2020-11-03] MEDS: amLODIPine 2.5 MG TABLET PO SCH (09:13)
[2020-11-03] MEDS: POTASSIUM CHLORIDE 20 MEQ TABLET PO SCH (09:13)
[2020-11-03] MEDS: APIXABAN 5 MG TABLET PO SCH (09:13)
[2020-11-03] MEDS: PANTOPRAZOLE 40 MG TABLET PO SCH ×2 (09:13→20:48)
[2020-11-03] MEDS: METOPROLOL SUCCINATE XL 25 MG TABLET PO SCH (09:13)
[2020-11-03] MEDS: PARoxetine 20 MG TABLET PO SCH (09:13)
[2020-11-03] MEDS: LOSARTAN 25 MG TABLET PO SCH (09:13)
[2020-11-03] MEDS: FUROSEMIDE 20 MG TABLET PO SCH (09:13)
[2020-11-03] MEDS: clonazePAM 0.5 MG TABLET PO SCH (20:47)
[2020-11-03] MEDS: ROSUVASTATIN 20 MG TABLET PO SCH (20:48)
[2020-11-03] MEDS: OXYBUTYNIN XL 15 MG TABLET PO SCH (20:48)
[2020-11-03] MEDS: ZALEPLON 5 MG CAPSULE PO PRN (20:50)
[2020-11-04] MEDS: ALBUTEROL/IPRATROPIUM 3 ML NEB RESP TX SCH ×2 (00:22→07:35)
[2020-11-04] MEDS: LEVOTHYROXINE 100 MCG TABLET PO SCH (05:54)
[2020-11-04] MEDS: LOSARTAN 25 MG TABLET PO SCH (09:39)
[2020-11-04] MEDS: PARoxetine 20 MG TABLET PO SCH (09:39)
[2020-11-04] MEDS: amLODIPine 2.5 MG TABLET PO SCH (09:39)
[2020-11-04] MEDS: METOPROLOL SUCCINATE XL 25 MG TABLET PO SCH (09:39)
[2020-11-04] MEDS: PANTOPRAZOLE 40 MG TABLET PO SCH (09:39)
[2020-11-04] MEDS: FUROSEMIDE 20 MG TABLET PO SCH (09:40)
[2020-11-04] MEDS: POTASSIUM CHLORIDE 20 MEQ TABLET PO SCH (09:40)
[2020-11-04 11:54] VITALS: BP 123/49
[2020-11-08] MEDS ORDERED: LACTATED RINGERS 1,000 ML IV SCH (08:00)
== END 2020-11-04 13:46 | disposition home health service (06) | DRG 291 ==
LOC: N.ED 19:46 → N.EDINP 21:47 → SUATTDRO 21:47 → N.EDINP 23:50 → N.5E 10-28 00:07
PROVIDERS: ADMIT Internal Medicine Geriatric Medicine; ATTEND Internal Medicine